=== PATIENT | female | born 1960 | race Two or more races ===

== ENCOUNTER 2025-01-27 08:00 | Day surgery (SDC) | payer BC, SELFPAY ==
[2025-01-26 14:35] VITALS: BMI 27.8
[2025-01-27] VITALS (13 sets, daily range): BP systolic 111–156; BP diastolic 67–89; PULSE 66–82; RESP 11–21; TEMP 36.4–36.8; O2SAT 98–100; BMI 27.4
[2025-01-27] MEDS: fentaNYL CIT INJ 50 mCg/ML AMP 2ML (ASD USE ONLY) IV ×2 (09:28→09:32)
[2025-01-27] MEDS: RINGERS LACTATED 1000 ML 1,000 ML 60 ML IV (09:28)
[2025-01-27] MEDS: DiphenhydrAMINE INJ 50 MG/ML VIAL 25 MG IV (09:28)
[2025-01-27] MEDS: LIDOCAINE JELLY 2% (Urojet) 10 ML TUBE TOP (09:30)
[2025-01-27] MEDS: MIDAZOLAM INJ 1 MG/ML VIAL 2 ML (ASD USE ONLY) 2 MG IV (09:30)
--- NOTE | 2025-01-27 10:05 | SUR.PHASEII ---
Patient into recovery with no acute distress needed, v/s stable, no complaints of pain or nausea at this time, patient provided with a warm blanket, report received from Aditya STARKS.
--- NOTE | 2025-01-27 10:09 | PD.SURHP ---
[facility] Date of Admission January 27, 2025 Chief Complaint Chief Complaint: Needs screening colonoscopy HPI This is a 64-year-old female she never had a colonoscopy she needs a screening colonoscopy due to her age. There is no history of rectal bleeding there is no history of colon cancer in the family. She has undergone bowel prep. Risk benefits and alternatives were discussed with the patient and informed consent is obtained. There is a small risk of perforation of the colon. Past Medical History Past Medical History NEUROLOGIC: Negative Neurological Disorders or Seizures CARDIAC: Negative Cardiac Disorders or Congestive Heart Failure RESPIRATORY: Negative Respiratory Disorders or Chronic Obstructive Pulmonary Disease (COPD) GASTROINTESTINAL: Negative Gastrointestinal Disorders GENITOURINARY: Negative Genitourinary Disorders or Renal Disease MUSCULOSKELETAL: Negative Musculoskeletal Disorders ENT: Negative History of ENT Problems ENDOCRINE: Negative Endocrine Disorders, Diabetes Mellitus Type 1 or Diabetes Mellitus Type 2 HEMATOLOGIC: Negative Blood Disorders OTHER HISTORY: Negative Blood Transfusions, Blood Transfusion Reaction, Anesthesia Reactions, Chicken Pox, Measles or Mumps Surgical History SURGICAL: Positive Section Social History SMOKING STATUS: Never smoker Meds Home Medications and Allergies Home Medications ?Medication ?Instructions ?Recorded ?Confirmed ?Type No Known Home Medications 01/26/25 01/26/25 History Allergies Allergy/AdvReac Type Severity Reaction Status Date / Time No Known Drug Allergies Allergy Verified 01/27/25 08:26 Exam Vital Signs Temp Pulse Resp BP Pulse Ox O2 Flow Rate 97.6 F 70 11 L 123/68 100 3 01/27/25 08:28 01/27/25 10:00 01/27/25 10:00 01/27/25 10:00 01/27/25 10:00 01/27/25 10:00 Constitutional Constitutional: no acute distress Routine HEENT Exam Head: Present normocephalic Eye: Present EOMI and PERRL ENT: Present mucous membranes moist Routine Neck Exam Neck: Present supple and trachea midline Routine Chest/Breast/Axilla Exam Chest wall: Absent tenderness or mass Routine Respiratory Exam Respiratory: Present chest non-tender, lungs clear, normal breath sounds and no resp distress; Absent respiratory distress Routine Cardiovascular Exam Cardiovascular: Present RRR Routine Abdominal Exam Abdominal: Present soft and normoactive bowel sounds Routine Extremities Exam Extremities: Present full ROM Routine Skin Exam Skin: Present intact, dry and warm Routine Neurological Exam Neurological: Present alert, oriented X3 and CN II-XII intact Routine Psychiatric Exam Psychiatric: Present normal affect and normal thought process Assessment & Plan Problem List (1) Encounter for screening colonoscopy: Status: Acute Plan Colonoscopy with possible polypectomy. The risk benefits alternatives were discussed with the patient and informed consent is obtained. Quality Measures Quality Measures none
== END 2025-01-27 10:45 | disposition home or self-care (01) ==
PROVIDERS: PCP Physician Assistant; Referring Provider Specialist; Visit Provider Specialist
PROC: 0DBE8ZX Excision of Large Intestine, Via Natural or Artificial Opening Endoscopic, Diagnostic (ICD-10-PCS; CPT 45380; principal; 2025-01-27 08:30)
DX: Z12.11 Encounter for screening for malignant neoplasm of colon (principal); K60.2 Anal fissure, unspecified; K64.9 Unspecified hemorrhoids
CPT/HCPCS: 45378; J1200; J2250; J3010; J7120